=== PATIENT | female | born 1955 | race Caucasian/White ===

== ENCOUNTER → 2016-12-25 | Outpatient (CLI) | payer OTHER ==
--- NOTE | 2017-01-07 11:04 | MM ---
Reason for exam: screening (asymptomatic). Last mammogram was performed 5 years and 8 months ago. History: Patient is postmenopausal. Physical Findings: A clinical breast exam by your physician is recommended on an annual basis and results should be correlated with mammographic findings. MG Screening Mammo w CAD Bilateral CC and MLO view(s) were taken. Prior study comparison: April 22, 2011, mammogram, performed at [facility]. There are scattered fibroglandular densities. There is no discrete abnormality. No significant changes when compared with prior studies. ASSESSMENT: Negative, BI-RAD 1 RECOMMENDATION: Routine screening mammogram of both breasts in 1 year.
== END | disposition home or self-care (01) ==
LOC: RADMAMWWP 09:09 → MERGE 09:20
PROVIDERS: ATTEND Family Medicine
DX: Z12.31 Encounter for screening mammogram for malignant neoplasm of breast (principal)

== ENCOUNTER → 2019-05-24 | Outpatient (CLI) | payer OTHER ==
--- NOTE | 2019-05-24 11:19 | US ---
EXAMINATION TYPE: US pelvis complete transvag DATE OF EXAM: 05/24/2019 COMPARISON: NONE CLINICAL HISTORY: N95.0 post menopausal bleeding. Intermittent vaginal bleeding for 2 months TECHNIQUE: Transvaginal (TV) and Transabdominal (TA) . Transabdominal sonographic images of the pel vis were acquired. Transvaginal sonographic images were medically necessary to better assess the fol lowing anatomy: uterus and ovaries Date of LMP: unknown EXAM MEASUREMENTS: Uterus: 8.3 x 3.5 x 5.0 cm Endometrial Stripe: 1.6 cm Right Ovary: 2.2 x 1.7 x 1.8 cm Left Ovary: unable to visualize 1. Uterus: Anteverted hypoechoic area anterior body = 1.2 x 0.8 x 1.3cm, probable fibroid 2. Endometrium: thickened with multiple small cystic areas 3. Right Ovary: appears wnl 4. Left Ovary: Obscured by overlying bowel gas 5. Bilateral Adnexa: appears wnl 6. Posterior cul-de-sac: wnl IMPRESSION: 1. Probable Leiomyomatous change of the uterus. 2. Thickened endometrium with cystic areas noted.
== END | disposition home or self-care (01) ==
LOC: RADUSWWP 10:35
PROVIDERS: ATTEND Family Medicine
DX: R93.89 Abnormal findings on diagnostic imaging of other specified body structures (principal); N95.0 Postmenopausal bleeding
CPT/HCPCS: 76830; 76856

== ENCOUNTER 2020-02-06 10:57 | Inpatient (IN) | payer OTHER ==
[2020-02-06] MEDS ORDERED: ONDANSETRON 4 MG/2 ML VIAL IVP STA (11:29)
[2020-02-06] MEDS ORDERED: HYDROmorphone 0.5 MG/0.5 ML SYRINGE IVP STA (11:29)
[2020-02-06] MEDS ORDERED: SODIUM CHLORIDE 0.9% 1,000 ML IV STA (11:29)
[2020-02-06 12:00] LABS: Basophils # (A) 0.1 k/uL (0-0.2); Basophils % (A) 1 %; Eosinophils # (A) 0.1 k/uL (0-0.7); Eosinophils % (A) 1 %; HCT 42.8 % (34.0-46.0); HGB 14.3 gm/dL (11.4-16.0); Lymphocytes # (A) 0.8 k/uL (1.0-4.8); Lymphocytes % (A) 6 %; MCH 30.7 pg (25.0-35.0); MCHC 33.5 g/dL (31.0-37.0); MCV 91.7 fL (80.0-100.0); Mean Platelet Volume 7.1; Monocytes # (A) 0.2 k/uL (0-1.0); Monocytes % (A) 2 %; Neutrophils # (A) 11.2 k/uL (1.3-7.7); Neutrophils % (A) 91 %; Platelet Count 340 k/uL (150-450); RBC 4.67 m/uL (3.80-5.40); RDW 13.3 % (11.5-15.5); WBC 12.3 k/uL (3.8-10.6)
[2020-02-06 12:17] LABS: Albumin 4.5 g/dL (3.5-5.0); Calcium 9.9 mg/dL (8.4-10.2); Potassium 3.9 mmol/L (3.5-5.1); Total Bilirubin 0.7 mg/dL (0.2-1.3); Total Protein 7.5 g/dL (6.3-8.2)
--- NOTE | 2020-02-06 12:43 | ED ---
General Adult HPI <Herson Nolan - Last Filed: 02/06/20 13:20> - General Source: patient, RN notes reviewed Mode of arrival: wheelchair Limitations: physical limitation <Ramon Arroyo - Last Filed: 02/06/20 13:25> - General Chief complaint: Abdominal Pain Stated complaint: Abd Pain Time Seen by Provider: 02/06/20 11:23 - History of Present Illness Initial comments: 64-year-old female with a past medical history of hyperlipidemia, thyroid disorder presents to the emergency room for abdominal pain. Patient states this started last night. States that she has had nausea and vomiting times one epis ode. She also had diarrhea earlier today. She denies fevers or chills. She does state that the pain is mostly in the right upper quadrant and radiates to her back.Patient has no other complaints at this time including shortness of breath, chest pain, headache, or visual changes. (Ramon Arroyo) - Related Data Home Medications Medication Instructions Recorded Confirmed Apple Cider Vinegar 450mg 450 mg PO DAILY 02/06/20 02/06/20 Biotin 10,000 mcg PO DAILY 02/06/20 02/06/20 Cyanocobalamin (Vitamin B-12) 1,000 mcg PO DAILY 02/06/20 02/06/20 [Vitamin B-12] Gemfibrozil [Lopid] 600 mg PO DAILY 02/06/20 02/06/20 Levothyroxine Sodium [Levoxyl] 75 mcg PO DAILY 02/06/20 02/06/20 Multivitamins, Thera [Multivitamin 1 tab PO DAILY 02/06/20 02/06/20 (formulary)] Allergies Allergy/AdvReac Type Severity Reaction Status Date / Time azithromycin Allergy Abdominal Verified 02/06/20 12:39 Pain Review of Systems ROS Other: All systems not noted in ROS Statement are negative. <Herson Nolan - Last Filed: 02/06/20 13:20> ROS Other: All systems not noted in ROS Statement are negative. <Ramon Arroyo - Last Filed: 02/06/20 13:25> ROS Statement: Those systems with pertinent positive or pertinent negative responses have been documented in the HPI. Past Medical History Past Medical History: Hyperlipidemia, Thyroid Disorder History of Any Multi-Drug Resistant Organisms: None Reported Additional Past Surgical History / Comment(s): ankle Past Psychological History: No Psychological Hx Reported Smoking Status: Never smoker Past Alcohol Use History: None Reported Past Drug Use History: None Reported <Ramon Arroyo Néstor - Last Filed: 02/06/20 13:25> General Exam Limitations: physical limitation General appearance: alert, in no apparent distress Head exam: Present: atraumatic, normocephalic, normal inspection Eye exam: Present: normal appearance, PERRL, EOMI. Absent: scleral icterus, conjunctival injection, periorbital swelling ENT exam: Present: normal exam, mucous membranes moist Neck exam: Present: normal inspection, full ROM. Absent: tenderness, meningismus, lymphadenopathy Respiratory exam: Present: normal lung sounds bilaterally. Absent: respiratory distress, wheezes, rales, rhonchi, stridor Cardiovascular Exam: Present: regular rate, normal rhythm, normal heart sounds. Absent: systolic murmur, diastolic murmur, rubs, gallop, clicks GI/Abdominal exam: Present: soft, tenderness (Tenderness noted to the right upper quadrant and epigastric regions), normal bowel sounds. Absent: distended, guarding, rebound, rigid Neurological exam: Present: alert <DinaRamon olivarez Néstor - Last Filed: 02/06/20 13:25> Course Vital Signs 02/06/20 02/06/20 02/06/20 11:14 11:40 12:24 Temperature 97.6 F 97.6 F Pulse Rate 52 L 48 L Respiratory 18 18 Rate Blood Pressure 100/56 116/76 O2 Sat by Pulse 99 99 85 L Oximetry EKG Findings - EKG Comments: EKG Findings:: Sinus bradycardia, ventricular rate 50, VA interval 146, QTC 424 <DinaRamon olivarez Néstor - Last Filed: 02/06/20 13:25> Medical Decision Making - Lab Data Result diagrams: 02/06/20 11:39 02/06/20 11:39 <Herson Nolan - Last Filed: 02/06/20 13:20> - Lab Data Result diagrams: 02/06/20 11:39 02/06/20 11:39 <Ramon Arroyo - Last Filed: 02/06/20 13:25> - Medical Decision Making Patient reevaluated and reexamined by myself, Dr. Nolan. I agree. Findings. This includes diagnostic interpretation and treatment plan. Abdomen is soft with mild tenderness right upper and right lower quadrant. CT report reviewed. Case discussed with Dr. Bennett who will admit. She requests clear liquids and IV antibiotics. Patient complains of nausea. Patient updated. (Herson Nolan) Vitals are stable. There was vital of 85% oxygen reported however this was a poor waveform at the time. Patient is consistently high 90s on room air. EKG shows a sinus bradycardia with a heart rate of 50. Physical exam reveals minimal upper abdominal tenderness. There is some minimal right lower quadrant abdominal tenderness as well. Mild leukocytosis with a white blood cell count of 12 and a left shift. CMP otherwise unremarkable. CT abdomen and pelvis with contrast shows early acute appendicitis with appendicolith. No abscess or free air. However no significant inflammatory changes at that time. She also has a hydropic gallbladder that may be due to fasting state, patient does states she has not eaten today because of this pain. There is an area of soft tissue nodularity with recommendation of further workup. There is also bilateral L5 pars defects with grade 2 anterolisthesis and severe DDD. Patient denying any back pain. At this time patient was started on Zosyn. Blood cultures pending. She does not have a surgeon. On-call surgeon Dr. Boone was consulted. (Ramon Arroyo) - Lab Data Lab Results 02/06/20 02/06/20 02/06/20 Range/Units 11:39 11:39 11:39 WBC 12.3 H (3.8-10.6) k/uL RBC 4.67 (3.80-5.40) m/uL Hgb 14.3 (11.4-16.0) gm/dL Hct 42.8 (34.0-46.0) % MCV 91.7 (80.0-100.0) fL MCH 30.7 (25.0-35.0) pg MCHC 33.5 (31.0-37.0) g/dL RDW 13.3 (11.5-15.5) % Plt Count 340 (150-450) k/uL MPV 7.1 Neutrophils % 91 % Lymphocytes % 6 % Monocytes % 2 % Eosinophils % 1 % Basophils % 1 % Neutrophils # 11.2 H (1.3-7.7) k/uL Lymphocytes # 0.8 L (1.0-4.8) k/uL Monocytes # 0.2 (0-1.0) k/uL Eosinophils # 0.1 (0-0.7) k/uL Basophils # 0.1 (0-0.2) k/uL Sodium 140 (137-145) mmol/L Potassium 3.9 (3.5-5.1) mmol/L Chloride 106 (98-107) mmol/L Carbon Dioxide 26 (22-30) mmol/L Anion Gap 8 mmol/L BUN 15 (7-17) mg/dL Creatinine 0.88 (0.52-1.04) mg/dL Est GFR (CKD-EPI)AfAm 81 (>60 ml/min/1.73 sqM) Est GFR (CKD-EPI)NonAf 71 (>60 ml/min/1.73 sqM) Glucose 156 H (74-99) mg/dL Calcium 9.9 (8.4-10.2) mg/dL Total Bilirubin 0.7 (0.2-1.3) mg/dL AST 23 (14-36) U/L ALT 24 (4-34) U/L Alkaline Phosphatase 103 (38-126) U/L Troponin I <0.012 (0.000-0.034) ng/mL Total Protein 7.5 (6.3-8.2) g/dL Albumin 4.5 (3.5-5.0) g/dL Amylase 88 (30-110) U/L Lipase 84 (23-300) U/L Disposition <Herson Nolan - Last Filed: 02/06/20 13:20> Is patient prescribed a controlled substance at d/c from ED?: No Time of Disposition: 13:09 <Ramon Arroyo - Last Filed: 02/06/20 13:25> Clinical Impression: Abdominal pain Disposition: ADMITTED IP TO THIS HOSP Referrals: Dianna Webster MD [Primary Care Provider] - 1-2 days
--- NOTE | 2020-02-06 12:48 | CT ---
EXAMINATION TYPE: CT abdomen pelvis w con DATE OF EXAM: 02/06/2020 COMPARISON: NONE HISTORY: 64-year-old female with mid abdominal pain, nausea and vomiting TECHNIQUE: Contiguous axial scanning of the abdomen and pelvis following administration of 100 ml Iso raquel 300 IV contrast. Delayed images through the kidneys and coronal/sagittal reconstructions perform ed. CT DLP: 2117.1 mGycm Automated exposure control for dose reduction was used. FINDINGS: Heart normal size without pericardial effusion. Lung bases clear without pleural effusion. Liver mildly enlarged at 18.3 cm. No focal lesions seen. Portal venous system is patent. No biliary d uctal dilatation. Gallbladder is hydropic measuring 5.1 cm wide. In addition, there is 1.2 cm area of mural-based nodul arity along the anterior wall. Adrenal glands, kidneys, spleen, and pancreas appear within normal limits. No dilated small bowel, free fluid, or free air. No mesenteric or retroperitoneal lymphadenopathy. The appendix is fluid-filled and dilated up to 1.6 cm. Scattered appendicoliths measure measure up to 8 mm, one of which is at the appendiceal base. No significant surrounding inflammation at this time. No significant stool burden. Mild generalized colonic diverticulosis, most extensive within the lower descending colon. No pericolonic inflammatory change seen. Bladder is collapsed. Uterus is anteverted. Endometrial stripe estimated at 1.3 cm which is abnormall y thickened in a postmenopausal female. Both ovaries are visualized. No abnormal fluid collection in the pelvis or pelvic lymphadenopathy. Bones: Mild degenerative change of the hips. Bilateral L5 pars defects with a 2 anterolisthesis at L5 -S1 with severe degenerative disc disease at this level. IMPRESSION: 1. EARLY ACUTE APPENDICITIS WITH FLUID FILLED DILATATION OF THE APPENDIX UP TO 1.6 CM AND A FEW APPEN DICOLITHS. AN 8 MM APPENDICOLITH IS IMPACTED AT THE APPENDICEAL BASE. NO ABSCESS OR FREE AIR. CHANGES ARE FELT TO BE EARLY WITHOUT ANY SIGNIFICANT SURROUNDING INFLAMMATION AT THIS TIME. 2. ENDOMETRIAL STRIPE MEASURES 1.3 CM WHICH IS ABNORMALLY THICKENED IN A POSTMENOPAUSAL FEMALE. CORRE LATE FOR ANY POSTMENOPAUSAL BLEEDING. DIFFERENTIAL CONSIDERATIONS INCLUDE ENDOMETRIAL POLYPS, CARCINO MA, AND HYPERPLASIA. RECOMMEND JOINTER OPERATOR REFERRAL. 3. Hydropic gallbladder may be due to fasting state. Clinically correlate. However, there is an area of 1.2 cm mural based soft tissue nodularity along the anterior gallbladder wall. Small early mass or a focus of adenomyomatosis are differential considerations. Consider initial outpatient assessment w ith gallbladder ultrasound. Appropriate follow-up recommended. 4. BILATERAL L5 PARS DEFECTS WITH GRADE 2 ANTEROLISTHESIS AT L5-S1 AND SEVERE DEGENERATIVE DISC DISEA SE AT THIS LEVEL.
[2020-02-06] MEDS ORDERED: PIPERACILLIN-TAZOBACTAM 3.375 GM in SODIUM CHLORIDE 0.9% 100 ML IVPB STA (13:05)
[2020-02-06] MEDS ORDERED: diphenhydrAMINE 50 MG/ML 1 ML VIAL IVP STA (13:12)
[2020-02-06] MEDS ORDERED: METOCLOPRAMIDE 5 MG/ML 2 ML VIAL IVP STA (13:12)
[2020-02-06] MEDS ORDERED: ONDANSETRON 4 MG/2 ML VIAL IVP PRN (13:19)
[2020-02-06] MEDS ORDERED: NALOXONE 0.4 MG/ML 1 ML VIAL IV PRN (13:19)
[2020-02-06] MEDS: SODIUM CHLORIDE 0.9% 1,000 ML IV SCH (13:41)
[2020-02-06] MEDS: HYDROmorphone 0.5 MG/0.5 ML SYRINGE IVP PRN (15:46)
[2020-02-06] MEDS: KETOROLAC 15 MG/ML 1 ML VIAL IVP SCH ×2 (18:20→23:06)
[2020-02-06] MEDS: ACETAMINOPHEN TAB 500 MG TAB PO SCH ×2 (18:21→23:06)
[2020-02-06] MEDS: PIPERACILLIN-TAZOBACTAM 3.375 GM in SODIUM CHLORIDE 0.9% 100 ML IVPB SCH (21:36)
[2020-02-07 06:01] LABS: Basophils % (A) 0 %; Eosinophils # (A) 0.2 k/uL (0-0.7); Eosinophils % (A) 1 %; HCT 37.6 % (34.0-46.0); HGB 12.6 gm/dL (11.4-16.0); Lymphocytes # (A) 1.1 k/uL (1.0-4.8); Lymphocytes % (A) 7 %; MCHC 33.4 g/dL (31.0-37.0); MCV 92.9 fL (80.0-100.0); Mean Platelet Volume 7.2; Monocytes # (A) 0.8 k/uL (0-1.0); Monocytes % (A) 5 %; Neutrophils # (A) 12.9 k/uL (1.3-7.7); Neutrophils % (A) 86 %; Platelet Count 230 k/uL (150-450); RBC 4.05 m/uL (3.80-5.40); RDW 13.5 % (11.5-15.5)
[2020-02-07] MEDS: KETOROLAC 15 MG/ML 1 ML VIAL IVP SCH ×3 (06:05→19:52)
[2020-02-07] MEDS: ACETAMINOPHEN TAB 500 MG TAB PO SCH ×3 (06:05→17:18)
[2020-02-07] MEDS: PIPERACILLIN-TAZOBACTAM 3.375 GM in SODIUM CHLORIDE 0.9% 100 ML IVPB SCH ×3 (06:06→21:27)
[2020-02-07] MEDS: SODIUM CHLORIDE 0.9% 1,000 ML IV SCH ×3 (06:06→17:00)
--- NOTE | 2020-02-07 07:48 | P.GSHP ---
History of Present Illness H&P Date: 02/07/20 CHIEF COMPLAINT: Right upper quadrant abdominal pain 1 day. HISTORY OF PRESENT ILLNESS: The patient is a 64-year-old female whose comorbidities include morbid obesity including hypothyroidism who presented with right upper quadrant abdominal pain after eating at a fast food restaurant. She is complaining primarily of right upper quadrant abdominal pain that started after eating a hamburger. She denies any family history of gallbladder disease. She reports her right upper quadrant abdominal pain has improved. She denies any right lower quadrant abdominal pain. Since admission, her abdominal pain has improved with IV antibiotics and nothing by mouth status. PAST MEDICAL HISTORY: See list and reviewed PAST SURGICAL HISTORY: See list and reviewed CURRENT MEDICATIONS: See list and reviewed ALLERGIES: See list and reviewed SOCIAL HISTORY: See list and reviewed FAMILY HISTORY: No family history of gallbladder disease. REVIEW OF ORGAN SYSTEMS: CONSTITUTIONAL: Denies any fever or chills. She is over 100 pounds plus overweight. HEENT: Denies any trouble with vision, hearing or nosebleeds. No difficulty swallowing. LYMPHATIC: The patient denies any lumps and bumps around the neck. ENDOCRINE: Has thyroid disorders. Denies any blood sugar glucose intolerance. RESPIRATORY: Denies shortness of breath including chronic cough. CARDIOVASCULAR: Denies history of chest pain with exertion. GASTROINTESTINAL: Denies regurgitation of bile at night as well as intermittent nausea. No blood in stools. GENITOURINARY: Denies any blood in urine or increased urinary frequency. MUSCULOSKELETAL: Denies current joint arthritis. NEUROLOGIC: Denies any numbness or tingling along the distal extremities. No seizure disorders or headaches. PSYCHIATRIC: Denies any depression or suicidal ideation. HEMATOLOGIC: Denies any abnormal bleeding or bruising. GENERAL MEDICAL CARE: The patient sees primary care physician regularly. PHYSICAL EXAMINATION: Vital signs: Reviewed GENERAL: Well developed and in no acute distress. HEENT: No sclera icterus. Extraocular movements grossly intact. Moist buccal mucosa. Head is atraumatic, normocephalic. Hears conversational speech. No nasal drainage. NECK: Supple without lymphadenopathy. No JV distention. CHEST: Non-labored respirations and equal bilateral excursions. CARDIOVASCULAR: Regular rate and rhythm. Palpable 2+ radial pulses. ABDOMEN: Soft, tender at the right right upper quadrant, mild. No peritonitis. No regular quadrant tenderness. MUSCULOSKELETAL: No clubbing, cyanosis or edema. NEUROLOGIC: No focal or lateralizing signs. PSYCH: Appropriate affect. Alert and oriented to person, place and time. SKIN: Well perfused. Good skin turgor. LABS: WBC over 18,000 STUDIES: CT of the abdomen and pelvis. I personally reviewed his computed tomography scan with presence of an appendicolith however without moderate fat stranding or moderate inflammatory changes. Gallbladder is dilated. ASSESSMENT: 1. Abnormal computed tomography scan for appendicolith, appendicitis 2. Right upper quadrant abdominal pain 3. Clinical cholecystitis PLAN: 1. Will proceed with right upper quadrant ultrasound include an HIDA scan for acute cholecystitis. 2. She does report her right upper quadrant abdominal pain has improved after IV fluid hydration and antibiotics. 3. With presence of appendicolith, appendicitis described. 4. May need delayed cholecystectomy pending results 5. Inpatient hospitalization described 6. Continue IV antibiotic 7. DVT prophylaxis 8. Patient is elevated risk complications due to concurrent appendicitis with cholecystitis and morbid obesity Past Medical History Past Medical History: Hyperlipidemia, Thyroid Disorder History of Any Multi-Drug Resistant Organisms: None Reported Additional Past Surgical History / Comment(s): ankle Past Anesthesia/Blood Transfusion Reactions: No Reported Reaction Past Psychological History: No Psychological Hx Reported Smoking Status: Never smoker Past Alcohol Use History: None Reported Past Drug Use History: None Reported - Past Family History Mother Family Medical History: Asthma, COPD, Coronary Artery Disease (CAD) Father History Unknown: Yes Medications and Allergies Home Medications Medication Instructions Recorded Confirmed Type Apple Cider Vinegar 450mg 450 mg PO DAILY 02/06/20 02/06/20 History Biotin 10,000 mcg PO DAILY 02/06/20 02/06/20 History Cyanocobalamin (Vitamin B-12) 1,000 mcg PO DAILY 02/06/20 02/06/20 History [Vitamin B-12] Gemfibrozil [Lopid] 600 mg PO DAILY 02/06/20 02/06/20 History Levothyroxine Sodium [Levoxyl] 75 mcg PO DAILY 02/06/20 02/06/20 History Multivitamins, Thera [Multivitamin 1 tab PO DAILY 02/06/20 02/06/20 History (formulary)] Allergies Allergy/AdvReac Type Severity Reaction Status Date / Time azithromycin Allergy Abdominal Verified 02/06/20 15:53 Pain Surgical - Exam Vital Signs Temp Pulse Resp BP Pulse Ox 97.6 F 52 L 18 100/56 99 02/06/20 11:14 02/06/20 11:14 02/06/20 11:14 02/06/20 11:14 02/06/20 11:14 Results - Labs 02/07/20 05:36 02/06/20 11:39 Abnormal Lab Results - Last 24 Hours (Table) 02/06/20 02/06/20 02/07/20 Range/Units 11:39 11:39 05:36 WBC 12.3 H 15.0 H (3.8-10.6) k/uL Neutrophils # 11.2 H 12.9 H (1.3-7.7) k/uL Lymphocytes # 0.8 L (1.0-4.8) k/uL Glucose 156 H (74-99) mg/dL Diabetes panel 02/06/20 Range/Units 11:39 Sodium 140 (137-145) mmol/L Potassium 3.9 (3.5-5.1) mmol/L Chloride 106 (98-107) mmol/L Carbon Dioxide 26 (22-30) mmol/L BUN 15 (7-17) mg/dL Creatinine 0.88 (0.52-1.04) mg/dL Glucose 156 H (74-99) mg/dL Calcium 9.9 (8.4-10.2) mg/dL AST 23 (14-36) U/L ALT 24 (4-34) U/L Alkaline Phosphatase 103 (38-126) U/L Total Protein 7.5 (6.3-8.2) g/dL Albumin 4.5 (3.5-5.0) g/dL Calcium panel 02/06/20 Range/Units 11:39 Calcium 9.9 (8.4-10.2) mg/dL Albumin 4.5 (3.5-5.0) g/dL Pituitary panel 02/06/20 Range/Units 11:39 Sodium 140 (137-145) mmol/L Potassium 3.9 (3.5-5.1) mmol/L Chloride 106 (98-107) mmol/L Carbon Dioxide 26 (22-30) mmol/L BUN 15 (7-17) mg/dL Creatinine 0.88 (0.52-1.04) mg/dL Glucose 156 H (74-99) mg/dL Calcium 9.9 (8.4-10.2) mg/dL Adrenal panel 02/06/20 Range/Units 11:39 Sodium 140 (137-145) mmol/L Potassium 3.9 (3.5-5.1) mmol/L Chloride 106 (98-107) mmol/L Carbon Dioxide 26 (22-30) mmol/L BUN 15 (7-17) mg/dL Creatinine 0.88 (0.52-1.04) mg/dL Glucose 156 H (74-99) mg/dL Calcium 9.9 (8.4-10.2) mg/dL Total Bilirubin 0.7 (0.2-1.3) mg/dL AST 23 (14-36) U/L ALT 24 (4-34) U/L Alkaline Phosphatase 103 (38-126) U/L Total Protein 7.5 (6.3-8.2) g/dL Albumin 4.5 (3.5-5.0) g/dL Assessment and Plan (1) Appendicolith Current Visit: Yes Status: Acute Code(s): K38.9 - DISEASE OF APPENDIX, UNSPECIFIED SNOMED Code(s): 97871252 (2) Leukocytosis Current Visit: Yes Status: Acute Code(s): D72.829 - ELEVATED WHITE BLOOD CELL COUNT, UNSPECIFIED SNOMED Code(s): 583045615 (3) Right upper quadrant abdominal pain Current Visit: Yes Status: Acute Code(s): R10.11 - RIGHT UPPER QUADRANT PAIN SNOMED Code(s): 459283139 (4) Cholecystitis Current Visit: Yes Status: Acute Code(s): K81.9 - CHOLECYSTITIS, UNSPECIFIED SNOMED Code(s): 80572008 (5) Appendicitis Current Visit: Yes Status: Acute Code(s): K37 - UNSPECIFIED APPENDICITIS SNOMED Code(s): 17509527 (6) Morbid obesity due to excess calories Current Visit: Yes Status: Acute Code(s): E66.01 - MORBID (SEVERE) OBESITY DUE TO EXCESS CALORIES SNOMED Code(s): 531668990 (7) Morbid obesity with BMI of 40.0-44.9, adult Current Visit: Yes Status: Acute Code(s): E66.01 - MORBID (SEVERE) OBESITY DUE TO EXCESS CALORIES; Z68.41 - BODY MASS INDEX [BMI]40.0-44.9, ADULT SNOMED Code(s): 427763653 (8) Hypothyroidism Current Visit: Yes Status: Acute Code(s): E03.9 - HYPOTHYROIDISM, UNSPECIFIED SNOMED Code(s): 44353843
[2020-02-07] MEDS ORDERED: ENOXAPARIN 30 MG/0.3 ML SYRINGE SQ SCH (08:00)
--- NOTE | 2020-02-07 08:37 | US ---
EXAMINATION TYPE: US gallbladder DATE OF EXAM: 02/07/2020 COMPARISON: Correlation CT 02/06/2020 CLINICAL HISTORY: 64-year-old female Cholecystitis. RUQ pain, N/V/D TECHNIQUE: Multiple sonographic images of the right upper quadrant are obtained. FINDINGS: EXAM MEASUREMENTS: Liver Length: 17.2 cm Gallbladder Wall: 0.2 cm CBD: 0.4 cm Right Kidney: 8.2 x 4.4 x 3.7 cm Pancreas: obscured by overlying midline bowel gas Liver: Borderline enlarged. Limited detailed assessment of the body habitus. Gallbladder: Hydropic and 5.0 cm wide with multiple shadowing faceted stones which were not apparent on the patient's CT measuring up to 1.4 cm. There is no abnormal wall thickening. There is a nonmobi le shadowing 1.2 cm mural-based echogenic nodule seen on the decubitus view of unclear etiology but l ikely corresponds to the CT finding. Evidence for sonographic Burrell's sign: no CBD: visualized portions wnl, limited by overlying bowel gas Right Kidney: Slightly small in size. No hydronephrosis. IMPRESSION: 1. Hydropic gallbladder may be due to fasting state. There is underlying cholelithiasis. However, the re is no wall thickening or sonographic Burrell sign to clearly indicate acute cholecystitis at this t shaji. 2. On the decubitus view, a shadowing, nonmobile, 1.2 cm mural based nodule is seen along the gallbla dder wall of unclear etiology but corresponding to the CT finding. A large polyp or adherent calculus are possible. Recommend three-month follow-up ultrasound to reassess. 3. No biliary ductal dilatation.
--- NOTE | 2020-02-07 10:56 | NM ---
EXAMINATION TYPE: NM hepatobiliary wo EF DATE OF EXAM: 02/07/2020 COMPARISON: Ultrasound same day HISTORY: 64-year-old female cholecystitis and cholelithiasis. TECHNIQUE: After the intravenous administration of 5.37 mCi Tc 99m Mebrofenin hepatobiliary scintigra phy is performed. Immediate images post injection. FINDINGS: There is satisfactory uptake of tracer by the liver. Gallbladder is visualized at 30 minutes. Small b owel is visualized at 8 minutes. IMPRESSION: Satisfactory filling of the gallbladder. No scintigraphic evidence of acute cholecystitis.
--- NOTE | 2020-02-07 11:07 | P.HPADDEND ---
H&P Addendum H&P Addendum Date: 02/07/20 HIDA scan independently reviewed without features of acute cholecystitis. Ultrasound of the gallbladder independent review demonstrated large multiple over 1 cm gallstone with gallbladder polyps. We'll proceed with robotic appendectomy. Cholecystectomy deferred.
[2020-02-07] MEDS ORDERED: IV FLUID CONTINUATION 400 ML IV ONE (14:23)
[2020-02-07] MEDS ORDERED: LIDOCAINE 1% INJ 10MG/ML (20 ML MDV) ONE (14:34)
[2020-02-07] MEDS ORDERED: fentaNYL (PF) 50 MCG/ML 2 ML AMP ONE (14:34)
[2020-02-07] MEDS ORDERED: ROCURONIUM 10 MG/ML (10 ML VIAL) IV ONE (14:34)
[2020-02-07] MEDS ORDERED: PROPOFOL 10 MG/ML 20 ML VIAL IV ONE (14:34)
[2020-02-07] MEDS ORDERED: MIDAZOLAM 2 MG/2 ML VIAL ONE (14:34)
[2020-02-07] MEDS ORDERED: KETOROLAC 15 MG/ML 1 ML VIAL ONE (14:34)
[2020-02-07] MEDS ORDERED: SUCCINYLCHOLINE CHLORIDE VIAL 200 MG/10 ML VIAL IV ONE (14:34)
[2020-02-07] MEDS ORDERED: DEXAMETHASONE SOD PHOSPHATE 4 MG/ML 1 ML VIAL IV ONE (14:36)
[2020-02-07] MEDS ORDERED: ONDANSETRON 4 MG/2 ML VIAL IVP ONE (14:36)
[2020-02-07] MEDS ORDERED: LIDOCAINE 1%-EPI 1:100,000 20 ML VIAL SQ ONE (15:05)
[2020-02-07] MEDS ORDERED: ACETAMINOPHEN IV (For NPO) 1,000 MG in EMPTY BAG 1 BAG IVPB ONE (17:06)
--- NOTE | 2020-02-07 17:08 | P.OP ---
Date of Procedure: 02/07/20 Description of Procedure: SURGEON: RYNE MCADAMS MD Preoperative Diagnosis: 1. Acute appendicitis 2. Morbid obesity due to excess calories, BMI 41.5 3. Hypothyroidism Postoperative Diagnosis: 1. Acute appendicitis, retrocecal with periappendicitis 2. Morbid obesity due to excess calories, BMI 41.5 3. Hypothyroidism Procedure(s) Performed: 1. Robotic-assisted daVinci Xi laparoscopic appendectomy Anesthesia: GETA, local Estimated Blood Loss (ml): 10 Pathology: other (appendix) Condition: stable Disposition: floor Operative Findings: 1. Acute appendicitis without rupture with periappendicitis, retrocecal 2. Terminal ileum unremarkable 3. Cecum unremarkable INDICATIONS: The patient is a 64-year-old female who presents with acute appendicitis. Benefits and risks, including infection, open surgery, and bleeding for additional surgery was discussed at length. Informed consent was obtained. All questions of the patient and family were answered. DESCRIPTION: The patient was transferred to the operating room and placed in supine position. The patient had previously voided. The abdomen was then prepped and draped in standard sterile fashion as Ioban was placed along the abdomen to minimize any contamination of skin floor. After a timeout protocol was performed, attention was then brought to the left upper quadrant whereby a 0 degree 5 mm laparoscopic trocar entry was performed. The abdominal cavity was entered and insufflated to 12 mmHg pressure, which was tolerated well. Diagnostic laparoscopy demonstrated no injury to bowel, viscera or mesentery. Next a robotic 8-mm trocar was placed along the left lower quadrant, 10-cm lateral to the midline. A 12 mm port was placed along the left upper quadrant and another 8-mm port left lateral abdominal wall. Ports were placed 8 cm apart from each other including 15-20 cm away from the target anatomy of the right pelvis. The patient was then placed in Trendelenburg position, at least 7 down and right side up at least 7. The robotic da Sunday XI system was primed and docked from the left side of the patient. Using atraumatic graspers and vessel sealer, the robotic system was docked and primed as described. Instruments were interchanged by the real estate executive assistant including graspers, robotic stapler and vessel sealer. Next, attention was brought to identify the cecum. A systematic view within the abdominal cavity was started with the small bowel which was unremarkable. The base of the cecum was unremarkable. The left groin was unremarkable. The right groin was unremarkable. The appendix was retrocecal coursing behind the ascending colon with additional dissection required. The body of the appendix was moderately dilated with moderate periappendicitis. No perforation was identified. The appendix was dissected free from its surrounding tissues. Green 45 mm robotic staple load was fired along the base of the appendix. Pressure was applied to the appendiceal stump to control bleeding. Hemostasis was checked prior to undocking the robot. The robot was undocked. I re-scrubbed into the case. The specimen was removed from the abdominal cavity with an Endo Catch bag through the 12 mm trocar at the left upper quadrant. The port site was closed with 0 Vicryl and Patrick Paniagua. All instruments and pneumoperitoneum were evacuated from the abdominal cavity. Local anesthetic was infiltrated to all wounds for postop analgesia. All incisions were also cleansed with diluted hydrogen peroxide. The incisions were closed with 4-0 Monocryl. Exofin glue was applied to the rest of the skin incisions. The patient had tolerated the procedure well. The patient was extubated successfully. The patient was transferred to the postanesthesia care unit in stable condition.
[2020-02-08] MEDS: ACETAMINOPHEN TAB 500 MG TAB PO SCH ×5 (00:27→23:47)
[2020-02-08] MEDS: KETOROLAC 15 MG/ML 1 ML VIAL IVP SCH ×3 (00:28→11:52)
[2020-02-08] MEDS: PIPERACILLIN-TAZOBACTAM 3.375 GM in SODIUM CHLORIDE 0.9% 100 ML IVPB SCH ×3 (05:22→21:45)
[2020-02-08] MEDS: SODIUM CHLORIDE 0.9% 1,000 ML IV SCH ×3 (05:22→17:38)
[2020-02-08] MEDS: LEVOTHYROXINE 75 MCG TAB PO SCH (06:34)
[2020-02-08] MEDS: HYDROmorphone 0.5 MG/0.5 ML SYRINGE IVP PRN (06:44)
[2020-02-08 07:06] LABS: Basophils % (A) 0 %; Eosinophils % (A) 0 %; HCT 36.6 % (34.0-46.0); HGB 11.8 gm/dL (11.4-16.0); Lymphocytes # (A) 1.2 k/uL (1.0-4.8); Lymphocytes % (A) 9 %; MCH 30.3 pg (25.0-35.0); MCHC 32.3 g/dL (31.0-37.0); MCV 93.8 fL (80.0-100.0); Mean Platelet Volume 7.2; Monocytes # (A) 0.5 k/uL (0-1.0); Monocytes % (A) 4 %; Neutrophils # (A) 11.3 k/uL (1.3-7.7); Neutrophils % (A) 85 %; Platelet Count 248 k/uL (150-450); RDW 13.4 % (11.5-15.5); WBC 13.2 k/uL (3.8-10.6)
[2020-02-08 07:23] LABS: Albumin 3.2 g/dL (3.5-5.0); Calcium 8.4 mg/dL (8.4-10.2); Potassium 4.2 mmol/L (3.5-5.1); Total Bilirubin 0.8 mg/dL (0.2-1.3); Total Protein 5.9 g/dL (6.3-8.2)
[2020-02-08] MEDS: ENOXAPARIN 40 MG/0.4 ML SYRINGE SQ SCH (08:22)
[2020-02-08] MEDS ORDERED: PANTOPRAZOLE 40 MG/10 ML VIAL IV SCH (09:00)
[2020-02-08 10:21] VITALS: BMI 41.5
--- NOTE | 2020-02-08 10:37 | P.PN ---
Subjective Progress Note Date: 02/08/20 CHIEF COMPLAINT: Acute appendicitis HISTORY OF PRESENT ILLNESS: The patient is a 64-year-old female postop day 1 status post robotic appendectomy for acute appendicitis. Shows that had concrement and symptomatic gallstones. Additional diagnostic studies an ultrasound confirmed gallstones without acute cholecystitis per HIDA scan. She points feeling much better today. She did have a episode earlier this morning with right upper back pain. PHYSICAL EXAMINATION: Vital signs: Reviewed GENERAL: Well developed and in no acute distress. HEENT: No sclera icterus. Extraocular movements grossly intact. Moist buccal mucosa. Head is atraumatic, normocephalic. Hears conversational speech. No nasal drainage. CHEST: Non-labored respirations and equal bilateral excursions. CARDIOVASCULAR: Regular rate and rhythm. Palpable 2+ radial pulses. ABDOMEN: Protuberant. Incisions intact. MUSCULOSKELETAL: No clubbing, cyanosis or edema. NEUROLOGIC: No focal or lateralizing signs. PSYCH: Appropriate affect. Alert and oriented to person, place and time. SKIN: Well perfused. Good skin turgor. LABS: White blood cell count down to 13,000 from over 15,000. ASSESSMENT: 1. Acute appendicitis 2. Symptomatic gallstones PLAN: 1. Low-fat diet described including dietitian consultation 2. Continue IV antibiotics as she has elevated risks for acute cholecystitis r with ecent history of symptomatic gallstones diagnosed during this hospitalization Objective - Vital Signs Vital signs: Vital Signs Temp 97 F L 02/08/20 07:49 Pulse 53 L 02/08/20 07:49 Resp 18 02/08/20 07:49 BP 102/54 02/08/20 07:49 Pulse Ox 97 02/08/20 07:49 Intake & Output 02/07/20 02/08/20 02/08/20 18:59 06:59 18:59 Intake Total 310 Output Total 205 400 Balance 105 -400 Weight 113.2 kg Intake: IV 250 Oral 60 Output: Urine 200 400 Estimated Blood Loss 5 Other: Voiding Method Toilet Toilet # Voids 1 - Labs CBC & Chem 7: 02/08/20 06:30 02/08/20 06:30 Labs: Abnormal Lab Results - Last 24 Hours (Table) 02/08/20 02/08/20 Range/Units 06:30 06:30 WBC 13.2 H (3.8-10.6) k/uL Neutrophils # 11.3 H (1.3-7.7) k/uL Chloride 111 H (98-107) mmol/L Creatinine 1.12 H (0.52-1.04) mg/dL Total Protein 5.9 L (6.3-8.2) g/dL Albumin 3.2 L (3.5-5.0) g/dL Microbiology - Last 24 Hours (Table) 02/06/20 13:20 Blood Culture - Preliminary Blood No Growth after 24 hours Assessment and Plan (1) Appendicolith Current Visit: Yes Status: Acute Code(s): K38.9 - DISEASE OF APPENDIX, UNSPECIFIED SNOMED Code(s): 70101354 (2) Leukocytosis Current Visit: Yes Status: Acute Code(s): D72.829 - ELEVATED WHITE BLOOD CELL COUNT, UNSPECIFIED SNOMED Code(s): 346046748 (3) Right upper quadrant abdominal pain Current Visit: Yes Status: Acute Code(s): R10.11 - RIGHT UPPER QUADRANT PAIN SNOMED Code(s): 992556674 (4) Cholecystitis Current Visit: Yes Status: Acute Code(s): K81.9 - CHOLECYSTITIS, UNSPECIFIED SNOMED Code(s): 81199886 (5) Appendicitis Current Visit: Yes Status: Acute Code(s): K37 - UNSPECIFIED APPENDICITIS SNOMED Code(s): 28455979 (6) Morbid obesity due to excess calories Current Visit: Yes Status: Acute Code(s): E66.01 - MORBID (SEVERE) OBESITY DUE TO EXCESS CALORIES SNOMED Code(s): 767016455 (7) Morbid obesity with BMI of 40.0-44.9, adult Current Visit: Yes Status: Acute Code(s): E66.01 - MORBID (SEVERE) OBESITY DUE TO EXCESS CALORIES; Z68.41 - BODY MASS INDEX [BMI]40.0-44.9, ADULT SNOMED Code(s): 581897467 (8) Hypothyroidism Current Visit: Yes Status: Acute Code(s): E03.9 - HYPOTHYROIDISM, UNSPECIFIED SNOMED Code(s): 83340107
[2020-02-08] MEDS ORDERED: SODIUM CHLORIDE 0.9% 2,000 ML IV ONE (15:10)
[2020-02-08] MEDS ORDERED: HYDROmorphone 1 MG/ML 1 ML SYRINGE IVP PRN (15:11)
[2020-02-08] MEDS ORDERED: SODIUM CHLORIDE 0.9% 1,000 ML IV ONE (18:34)
[2020-02-09] MEDS: LEVOTHYROXINE 75 MCG TAB PO SCH (05:33)
[2020-02-09] MEDS: PIPERACILLIN-TAZOBACTAM 3.375 GM in SODIUM CHLORIDE 0.9% 100 ML IVPB SCH (05:34)
[2020-02-09] MEDS: SODIUM CHLORIDE 0.9% 1,000 ML IV SCH (05:35)
[2020-02-09 05:50] LABS: Basophils % (A) 0 %; Eosinophils # (A) 0.4 k/uL (0-0.7); Eosinophils % (A) 5 %; HCT 35.4 % (34.0-46.0); HGB 11.6 gm/dL (11.4-16.0); Lymphocytes # (A) 1.7 k/uL (1.0-4.8); Lymphocytes % (A) 18 %; MCH 30.8 pg (25.0-35.0); MCHC 32.6 g/dL (31.0-37.0); MCV 94.5 fL (80.0-100.0); Mean Platelet Volume 7.8; Monocytes # (A) 0.4 k/uL (0-1.0); Monocytes % (A) 5 %; Neutrophils # (A) 6.4 k/uL (1.3-7.7); Neutrophils % (A) 71 %; Platelet Count 227 k/uL (150-450); RBC 3.75 m/uL (3.80-5.40); RDW 13.6 % (11.5-15.5)
[2020-02-09 05:52] VITALS: TEMP 97.7
[2020-02-09 06:11] LABS: Albumin 3.1 g/dL (3.5-5.0); Calcium 8.2 mg/dL (8.4-10.2); Potassium 3.9 mmol/L (3.5-5.1); Total Bilirubin 0.6 mg/dL (0.2-1.3); Total Protein 5.7 g/dL (6.3-8.2)
[2020-02-09] MEDS: ACETAMINOPHEN TAB 500 MG TAB PO SCH (06:11)
[2020-02-09] MEDS ORDERED: SODIUM CHLORIDE 0.9% 2,000 ML IV ONE (06:13)
[2020-02-09 07:40] VITALS: BP 120/74; PULSE 56; RESP 18
[2020-02-09] MEDS: ENOXAPARIN 40 MG/0.4 ML SYRINGE SQ SCH (08:39)
[2020-02-09] MEDS ORDERED: PANTOPRAZOLE 40 MG TABLET PO SCH (09:00)
== END 2020-02-09 10:05 | disposition home or self-care (01) | DRG 342 ==
LOC: EC 10:57 → 6PED 13:25 → OBSVTOIN 02-07 17:06
PROVIDERS: ADMIT Surgery Plastic and Reconstructive Surgery; ATTEND Surgery Plastic and Reconstructive Surgery
PROC: 8E0W4CZ Robotic Assisted Procedure of Trunk Region, Percutaneous Endoscopic Approach (ICD-10-PCS; principal; 2020-02-07 10:20)
PROC: 0DTJ4ZZ Resection of Appendix, Percutaneous Endoscopic Approach (ICD-10-PCS; principal; 2020-02-07 10:20)
DX: K35.80 Unspecified acute appendicitis (principal); Z68.41 Body mass index [BMI] 40.0-44.9, adult; K82.1 Hydrops of gallbladder; E03.9 Hypothyroidism, unspecified; K38.1 Appendicular concretions; E66.01 Morbid (severe) obesity due to excess calories; R00.1 Bradycardia, unspecified; K80.20 Calculus of gallbladder without cholecystitis without obstruction; Z20.828 Contact with and (suspected) exposure to other viral communicable diseases; M51.36 Other intervertebral disc degeneration, lumbar region; E78.5 Hyperlipidemia, unspecified; Z88.1 Allergy status to other antibiotic agents; Z79.890 Hormone replacement therapy; Z82.49 Family history of ischemic heart disease and other diseases of the circulatory system; Z79.899 Other long term (current) drug therapy; Z82.5 Family history of asthma and other chronic lower respiratory diseases
CPT/HCPCS: 36415; 74177; 76705; 78226; 80053; 82150; 83690; 84484; 85025; 87040; 87635; 88304; 93005; 96361; 96365; 96375; 99285

== ENCOUNTER → 2020-08-14 | Outpatient (CLI) | payer OTHER ==
--- NOTE | 2020-08-17 09:43 | MM ---
Reason for exam: screening (asymptomatic). Last mammogram was performed 3 years and 8 months ago. History: Patient is postmenopausal. Physical Findings: A clinical breast exam by your physician is recommended on an annual basis and results should be correlated with mammographic findings. MG Screening Mammo w CAD Bilateral CC and MLO view(s) were taken. Prior study comparison: December 25, 2016, bilateral MG screening mammo w CAD. April 22, 2011, mammogram, performed at [facility]. There are scattered fibroglandular densities. No significant changes when compared with prior studies. ASSESSMENT: Benign, BI-RAD 2 RECOMMENDATION: Routine screening mammogram of both breasts in 1 year.
== END | disposition home or self-care (01) ==
LOC: RADMAMWWP 13:15
PROVIDERS: ATTEND Family Medicine
DX: Z12.39 Encounter for other screening for malignant neoplasm of breast (principal)
CPT/HCPCS: 77067

== ENCOUNTER → 2021-06-22 | Outpatient (CLI) | payer OTHER ==
--- NOTE | 2021-06-22 14:09 | CT ---
EXAMINATION TYPE: CT iac wo con DATE OF EXAM: 06/22/2021 COMPARISON: None HISTORY: Otalgia both ears CT DLP: 142.70mGycm Automated exposure control for dose reduction was used. FINDINGS: The external auditory canals are patent bilaterally. Mastoid air cells show no evidence of abnormal opacification bilaterally. The middle ear ossicles are symmetric and unremarkable. There is no evidence of suspicious surrounding soft tissue density to suggest cholesteatoma. The scutum is preserved bilaterally. The cochlea and the semicircular canals are symmetric and unremarkable. Ves tibular aqueduct and internal carotid canal appear unremarkable. Temporomandibular joints are mainta ined bilaterally. The tympanic membranes are not thickened. IMPRESSION: No significant abnormality seen
== END | disposition home or self-care (01) ==
LOC: RADCTMAIN 13:30
PROVIDERS: ATTEND Family Medicine
DX: H92.03 Otalgia, bilateral (principal); Z86.69 Personal history of other diseases of the nervous system and sense organs
CPT/HCPCS: 70480

== ENCOUNTER → 2022-07-12 | Outpatient (CLI) | payer BC ==
--- NOTE | 2022-07-15 10:27 | MM ---
Reason for Exam: Screening (asymptomatic). Last mammogram was performed 1 year(s) and 11 month(s) ago. Patient History: Menarche at age 13. First Full-Term at age 19. Postmenopausal. Risk Values: Yuridia 5 year model risk: 1.2%. NCI Lifetime model risk: 4.6%. Prior Study Comparison: 04/22/2011 Screening Mammogram, [facility]. 12/25/2016 Bilateral Screening Mammogram, [facility]. 08/14/2020 Bilateral Screening Mammogram, [facility]. Tissue Density: There are scattered fibroglandular densities. Findings: Analyzed By CAD. There is no suspicious group of microcalcifications or new suspicious mass in either breast. Overall Assessment: Negative, BI-RAD 1 Management: Screening Mammogram of both breasts in 1 year. . Patient should continue monthly self-breast exams. A clinical breast exam by your physician is recommended on an annual basis. This exam should not preclude additional follow-up of suspicious palpable abnormalities. Note on Yuridia scores and lifetime risk: 1. A Yuridia score greater than 3% is considered moderate risk. If this is the case, consider specialist referral to assess eligibility for a risk reducing agent. 2. If overall lifetime risk for the development of breast cancer is 20% or higher, the patient may qualify for future screening with alternating mammogram and breast MRI. Electronically signed and approved by: Nicholas Peoples M.D.
== END | disposition home or self-care (01) ==
LOC: RADMAMWWP 07:35
PROVIDERS: ATTEND Family Medicine
DX: Z12.31 Encounter for screening mammogram for malignant neoplasm of breast (principal); Z78.0 Asymptomatic menopausal state
CPT/HCPCS: 77067

== ENCOUNTER → 2023-07-17 | Outpatient (CLI) | payer BC, MEDICARE ==
--- NOTE | 2023-07-18 06:35 | XR ---
EXAMINATION TYPE: XR cervical spine comp DATE OF EXAM: 07/17/2023 12:24 PM CLINICAL INDICATION:Female, 67 years old with history of M54.2 CERVICALGIA R20.2 PARESTHESIA OF SKIN; [facility] COMPARISON: None. TECHNIQUE: The cervical spine was imaged in frontal, lateral, odontoid and bilateral oblique. FINDINGS: The osseous structures show normal alignment without evidence of an acute fracture. No significant ve rtebral body osteophytes or facet joint arthropathy. The intervertebral disk spaces are preserved. Pe dicles are intact. Soft tissues are within normal limits. The odontoid appears intact. IMPRESSION: 1. No fracture or dislocation. 2. Mild degenerative disc disease changes of the cervical spine.
--- NOTE | 2023-07-18 08:02 | XR ---
EXAMINATION TYPE: XR shoulder limited RT DATE OF EXAM: 07/17/2023 12:24 PM CLINICAL INDICATION:Female, 67 years old with history of M54.2 CERVICALGIA R20.2 PARESTHESIA OF SKIN; [facility] COMPARISON: None. TECHNIQUE: XR shoulder limited RT; examined in AP, internally rotated and scapular Y projections. FINDINGS: No evidence of acute osseous pathology, joint dislocation, or soft tissue swelling. The remaining po rtions of the visualized chest are unremarkable. IMPRESSION: No acute osseous pathology.
== END | disposition home or self-care (01) ==
LOC: RADXRMAIN 11:44
PROVIDERS: ATTEND Family Medicine
DX: M50.30 Other cervical disc degeneration, unspecified cervical region (principal); R20.2 Paresthesia of skin
CPT/HCPCS: 72050

== ENCOUNTER → 2023-08-13 | Outpatient (CLI) | payer BC, MEDICARE ==
--- NOTE | 2023-08-13 13:44 | MR ---
EXAMINATION TYPE: MR cervical spine wo con DATE OF EXAM: 08/13/2023 COMPARISON: Cervical spine radiograph 07/17/2023 HISTORY: Right arm pain. TECHNIQUE: Multiplanar, multisequence images of the cervical spine were acquired without contrast. C2-C3: No evidence for degenerative disc disease. No disc bulge/herniation or protrusion. No Canal stenosis. Foramina are patent bilaterally. C3-C4: No evidence for degenerative disc disease. No disc bulge/herniation or protrusion. No Canal stenosis. Foramina are patent bilaterally. C4-C5: No evidence for degenerative disc disease. No disc bulge/herniation or protrusion. No Canal stenosis. Foramina are patent bilaterally. C5-C6: Broad-based disc bulge without significant central canal narrowing. Uncovertebral joint hypert rophy with minimal narrowing of the right neural foramen. The left neuroforamen is patent. Mild promi nent ligamenta flava posterior to C6. C6-C7: Broad-based disc bulge without significant central canal narrowing. Foramina are patent bilate rally. C7-T1: No evidence for degenerative disc disease. No disc bulge/herniation or protrusion. No Canal stenosis. Foramina are patent bilaterally. Cervical segments are intact. There is normal alignment. Cervical spinal cord is of normal signal. Craniovertebral junction relationships are within normal limits. IMPRESSION: Minimal degenerative disc disease at C5-C6 and C6-C7. No significant central canal stenosis. Minimal right neural foraminal narrowing at C5-C6.
== END | disposition home or self-care (01) ==
LOC: RADMRIMAIN 05:57
PROVIDERS: ATTEND Family Medicine
DX: M50.322 Other cervical disc degeneration at C5-C6 level (principal); M50.323 Other cervical disc degeneration at C6-C7 level; M99.71 Connective tissue and disc stenosis of intervertebral foramina of cervical region; R20.2 Paresthesia of skin; M79.601 Pain in right arm
CPT/HCPCS: 72141

== ENCOUNTER → 2024-06-16 | Outpatient (CLI) | payer MEDICARE, BC ==
--- NOTE | 2024-06-16 13:04 | BD ---
EXAMINATION TYPE: Axial Bone Density DATE OF EXAM: 06/16/2024 CLINICAL HISTORY: 68 years old Female. ICD-10 CODE: Z78.0 ASYMPTOMATIC MENOPAUSAL , Additional Histo ry: Height: 64.5 Weight: 229 FRAX RISK QUESTIONS: History of Fracture in Adulthood: yes 3. Menopause before 45: no at 49 RISK FACTORS HISTORY OF: hx of right ankle fracture requiring surgical repair as an adult MEDICATIONS: Thyroid Medications: yes, synthroid for about 8 yrs EXAM MEASUREMENTS: Bone mineral densitometry was performed using the [email or web address] System. Bone mineral density as measured about the Lumbar spine is: ----- L1-L4(G/cm2): 0.954 T Score Values are as follows: ----- L1: -2.1 ----- L2: -1.6 ----- L3: -1.9 ----- L4: -2.1 ----- L1-L4: -1.9 Z Score Values are as follows: ----- L1: -1.6 ----- L2: -1.2 ----- L3: -1.4 ----- L4: -1.7 ----- L1-L4: -1.4 Bone mineral density is her first bone density test, baseline study. Bone mineral density about the R hip (g/cm2): 0.910 Bone mineral density about the L hip (g/cm2): 0.973 T Score values are as follows: -----R Neck: -1.3 -----L Neck: -0.6 -----R Total: -0.8 -----L Total: -0.3 Z Score values are as follows: -----R Neck: -0.4 -----L Neck: 0.2 -----R Total: -0.3 -----L Total: 0.2 Bone mineral density is her first dexxa, baseline study. FRAX%s: The graph provided illustrates a 13.1% chance for a major osteoporotic fx and a 1.2% chance f or the hips probability for fx in 10 years time. IMPRESSION: Osteopenia (T Score between -2.5 and -1). There is slightly increased risk of fracture and the patient may be considered for treatment. Re-Screen 2-5 years. NOTE: T-SCORE=SD OF THE YOUNG ADULT MEAN. [facility], , 06/16/2024 1:02 PM
== END | disposition home or self-care (01) ==
LOC: RADBDWWP 08:47
PROVIDERS: ATTEND Family Medicine
DX: M85.89 Other specified disorders of bone density and structure, multiple sites (principal); Z78.0 Asymptomatic menopausal state
CPT/HCPCS: 77080

== ENCOUNTER → 2024-07-23 | Outpatient (CLI) | payer MEDICARE, BC ==
--- NOTE | 2024-07-23 08:22 | MM ---
Reason for Exam: Screening (asymptomatic). Last mammogram was performed 2 year(s) and 0 month(s) ago. Patient History: Menarche at age 13. First Full-Term at age 19. Postmenopausal. Risk Values: Yuridia 5 year model risk: 1.2%. NCI Lifetime model risk: 4.2%. Prior Study Comparison: 12/25/2016 Bilateral Screening Mammogram, [facility]. 08/14/2020 Bilateral Screening Mammogram, [facility]. 07/12/2022 Bilateral MG screening mammo w CAD, [facility]. Tissue Density: The breasts are heterogeneously dense, which may obscure small masses. Findings: Analyzed By CAD. There is no suspicious group of microcalcifications or new suspicious mass in either breast. Overall Assessment: Benign, BI-RAD 2 Management: Screening Mammogram of both breasts in 1 year. . Patient should continue monthly self-breast exams. A clinical breast exam by your physician is recommended on an annual basis. This exam should not preclude additional follow-up of suspicious palpable abnormalities. Note on Yuridia scores and lifetime risk: 1. A Yuridia score greater than 3% is considered moderate risk. If this is the case, consider specialist referral to assess eligibility for a risk reducing agent. 2. If overall lifetime risk for the development of breast cancer is 20% or higher, the patient may qualify for future screening with alternating mammogram and breast MRI. [facility], , 07/23/2024 8:19 AM. Electronically signed and approved by: Mio Aranda M.D. [facility]
== END | disposition home or self-care (01) ==
LOC: RADMAMWWP 07:55
PROVIDERS: ATTEND Family Medicine
DX: Z12.31 Encounter for screening mammogram for malignant neoplasm of breast (principal); R92.333 Mammographic heterogeneous density, bilateral breasts; Z78.0 Asymptomatic menopausal state
CPT/HCPCS: 77063; 77067